=== PATIENT | male | born 1955 | race Caucasian/White ===

== ENCOUNTER → 2016-11-03 | Outpatient (CLI) | payer OTHER ==
--- NOTE | 2016-11-03 17:45 | XR ---
EXAMINATION TYPE: XR knee complete LT DATE OF EXAM: 11/03/2016 5:34 PM COMPARISON: 10/08/2014 HISTORY: Pain and contusion TECHNIQUE: 3 views FINDINGS: There is a moderate knee joint effusion. There is spurring of the patella. There is moderat e narrowing of the medial joint space. There is spurring of the femoral and tibial condyles. I see no fracture line. IMPRESSION: Moderate osteoarthritis. There is a large knee joint effusion that is new compared to old exam. No fracture seen.
== END | disposition home or self-care (01) ==
LOC: RADXRMAIN 17:15
PROVIDERS: ATTEND Emergency Medicine
DX: S80.02XA Contusion of left knee, initial encounter (principal); M17.12 Unilateral primary osteoarthritis, left knee

== ENCOUNTER 2021-04-22 08:21 | Day surgery (SDC) | payer MEDICARE, OTHER ==
[2021-04-17 11:42] VITALS: BMI 27.2
[~2021-04-22 08:21] MED LIST: LACTATED RINGERS 1,000 ML IV SCH
[2021-04-22 08:59] VITALS: RESP 16; TEMP 97
[2021-04-22] MEDS ORDERED: LIDOCAINE 1% (10MG/ML) FOR IV START INTRADERMA ONE (08:59)
[2021-04-22] MEDS ORDERED: PROPOFOL 10 MG/ML 20 ML VIAL IV ONE (09:35)
--- NOTE | 2021-04-22 09:45 | P.GSHP ---
History of Present Illness H&P Date: 04/22/21 CHIEF COMPLAINT: Colon screen HISTORY OF PRESENT ILLNESS: The patient is a 65-year-old male who presents for colon screen. Lower endoscopy was offered for further evaluation and management. PAST MEDICAL HISTORY: Please see list. PAST SURGICAL HISTORY: Please see list. MEDICATIONS: Please see list. ALLERGIES: Please see list. SOCIAL HISTORY: No illicit drug use FAMILY HISTORY: No reports of Crohn disease or ulcerative colitis. REVIEW OF ORGAN SYSTEMS: CONSTITUTIONAL: No reports of fevers or chills. PHYSICAL EXAM: VITAL SIGNS: Stable GENERAL: Well-developed pleasant in no acute distress. HEENT: No scleral icterus. Extraocular movements grossly intact. Moist buccal mucosa. NECK: Supple without lymphadenopathy. CHEST: Unlabored respirations. Equal bilateral excursions. CARDIOVASCULAR: Regular rate and rhythm. Distal 2+ pulses. ABDOMEN: Soft, nontender, nondistended. MUSCULOSKELETAL: No clubbing, cyanosis, or edema. ASSESSMENT: 1. Colon screen. PLAN: 1. Recommend proceeding with a lower endoscopy Past Medical History Past Medical History: Cancer, Osteoarthritis (OA), Seizure Disorder Additional Past Medical History / Comment(s): SKIN CANCER, last seizure > 10 yrs ago, hx colon polyp, blood in stool 3-4 weeks ago, History of Any Multi-Drug Resistant Organisms: None Reported Past Surgical History: Orthopedic Surgery, Tonsillectomy Additional Past Surgical History / Comment(s): left knee open surgery, LEFT KNEE-ARTHROSCOPIC, RIGHT SHOULDER fx- 2 pins, colonoscopy, Past Anesthesia/Blood Transfusion Reactions: No Reported Reaction Smoking Status: Former smoker - Past Family History Mother Family Medical History: Cancer Additional Family Medical History / Comment(s): PANCREAS Medications and Allergies Home Medications Medication Instructions Recorded Confirmed Type PHENobarbitaL [Luminal] 64.8 mg PO BID 03/02/16 04/22/21 History Phenytoin [Dilantin Chew] 50 mg PO QAM 03/02/16 04/22/21 History Magnesium 500 mg PO DAILY 04/17/21 04/22/21 History Multivitamins, Thera [Multivitamin 1 tab PO DAILY 04/17/21 04/22/21 History (formulary)] Phenytoin Sodium Extended 100 mg PO TID 04/17/21 04/22/21 History [Dilantin] Allergies Allergy/AdvReac Type Severity Reaction Status Date / Time No Known Allergies Allergy Verified 04/22/21 08:54 Surgical - Exam Vital Signs Temp Pulse Resp BP Pulse Ox 97.0 F L 74 16 156/76 96 04/22/21 08:58 04/22/21 08:58 04/22/21 08:58 04/22/21 08:58 04/22/21 08:58
--- NOTE | 2021-04-22 10:10 | P.PCN ---
Date of Procedure: 04/22/21 Description of Procedure: PREOPERATIVE DIAGNOSIS: Personal history of colon polyps Colonoscopy screening POSTOPERATIVE DIAGNOSIS: Personal history of colon polyps Tubular adenoma sigmoid colon Tubular adenoma ascending colon OPERATION: Colonoscopy to the ileocecal valve and appendiceal orifice, cecum Colonoscopy with cold forceps biopsy SURGEON: Barbara Parks MD. ANESTHESIA: MAC. INDICATIONS: The patient is an 65-year-old male who presents personal history of colon polyps. Last colonoscopy over 5 years. Benefits and risks were described and informed consent was obtained. DESCRIPTION OF PROCEDURE: The patient had undergone Sutab prep. The patient had been brought into the operating room and laid in the left lateral decubitus position. After adequate intravenous sedation, the rectum was examined with 2% lidocaine jelly. The prostate was unremarkable. No external hemorrhoids were encountered. The rectal tone was within normal limits. No lesions were palpated in the rectal vault. An Olympus colonoscope was advanced until the cecum, ileocecal valve and appendiceal orifice were clearly viewed. The prep was excellent. No sigmoid diverticulosis was encountered. Colonic polyps were found and removed. No evidence of focal colitis was found. Retroflexion of the scope demonstrated grade 1 internal hemorrhoids without active bleeding or inflammation. The colon was desufflated. The patient had tolerated the procedure well. Withdrawal time was over 6 minutes. FINDINGS: Aronchick preparation quality scale 1 (1-5) Internal hemorrhoids, grade 1 No external hemorrhoids No arteriovenous malformations. No sigmoid diverticulosis Removal of 2 polyps: - Cold forceps biopsy at 25 cm from the anal verge, 4 mm polyp, sigmoid colon - Cold forceps biopsy at proximal ascending colon, 4 mm polyp. No focal colitis. RECOMMENDATIONS: Repeat colonoscopy 3 year, 2023 for higher risk adenomatous polyps Plan - Discharge Summary New Discharge Prescriptions: Continue Phenytoin [Dilantin Chew] 50 mg PO QAM PHENobarbitaL [Luminal] 64.8 mg PO BID Phenytoin Sodium Extended [Dilantin] 100 mg PO TID Multivitamins, Thera [Multivitamin (formulary)] 1 tab PO DAILY Magnesium 500 mg PO DAILY Discharge Medication List PHENobarbitaL [Luminal] 64.8 mg PO BID 03/02/16 [History] Phenytoin [Dilantin Chew] 50 mg PO QAM 03/02/16 [History] Magnesium 500 mg PO DAILY 04/17/21 [History] Multivitamins, Thera [Multivitamin (formulary)] 1 tab PO DAILY 04/17/21 [History] Phenytoin Sodium Extended [Dilantin] 100 mg PO TID 04/17/21 [History] Follow up Appointment(s)/Referral(s): Barbara Parks MD [STAFF PHYSICIAN] - As Needed Patient Instructions/Handouts: Colorectal Polyps (DC) Activity/Diet/Wound Care/Special Instructions: Repeat colonoscopy 3 years2023 Discharge Disposition: HOME SELF-CARE
[2021-04-22 10:24] VITALS: BP 133/82; PULSE 64
== END 2021-04-22 10:46 | disposition home or self-care (01) ==
LOC: ORWHC2ENDO 08:21
PROVIDERS: ATTEND Surgery Plastic and Reconstructive Surgery
DX: Z12.11 Encounter for screening for malignant neoplasm of colon (principal); Z86.010 Personal history of colon polyps; D12.5 Benign neoplasm of sigmoid colon; D12.2 Benign neoplasm of ascending colon; M19.90 Unspecified osteoarthritis, unspecified site; G40.909 Epilepsy, unspecified, not intractable, without status epilepticus; Z87.891 Personal history of nicotine dependence; Z85.828 Personal history of other malignant neoplasm of skin; Z79.899 Other long term (current) drug therapy
CPT/HCPCS: 45380; 88305; J2704

== ENCOUNTER 2023-11-23 07:59 | Day surgery (SDC) | payer MEDICARE ==
[2023-11-21 11:26] VITALS: BMI 23.7
[~2023-11-23 07:59] MED LIST changes: -LACTATED RINGERS 1,000 ML IV SCH; +LIDOCAINE 1% (10MG/ML) FOR IV START INTRADERMA PRN; +ONDANSETRON 4 MG/2 ML VIAL IVP PRN
--- NOTE | 2023-11-23 08:01 | P.GSHP ---
History of Present Illness H&P Date: 11/23/23 CHIEF COMPLAINT: Colon screen HISTORY OF PRESENT ILLNESS: The patient is a 67-year-old male who presents for colon screen. Lower endoscopy was offered for further evaluation and management. PAST MEDICAL HISTORY: Please see list. PAST SURGICAL HISTORY: Please see list. MEDICATIONS: Please see list. ALLERGIES: Please see list. SOCIAL HISTORY: No illicit drug use FAMILY HISTORY: No reports of Crohn disease or ulcerative colitis. REVIEW OF ORGAN SYSTEMS: CONSTITUTIONAL: No reports of fevers or chills. PHYSICAL EXAM: VITAL SIGNS: Stable GENERAL: Well-developed pleasant in no acute distress. HEENT: No scleral icterus. Extraocular movements grossly intact. Moist buccal mucosa. NECK: Supple without lymphadenopathy. CHEST: Unlabored respirations. Equal bilateral excursions. CARDIOVASCULAR: Regular rate and rhythm. Distal 2+ pulses. ABDOMEN: Soft, nontender, nondistended. MUSCULOSKELETAL: No clubbing, cyanosis, or edema. ASSESSMENT: 1. Colon screen. PLAN: 1. Recommend proceeding with a lower endoscopy Past Medical History Past Medical History: Cancer, Osteoarthritis (OA), Seizure Disorder Additional Past Medical History / Comment(s): SKIN CANCER, last seizure > 10 yrs ago, hx colon polyp, blood in stool 3-4 weeks ago, History of Any Multi-Drug Resistant Organisms: None Reported Past Surgical History: Orthopedic Surgery, Tonsillectomy Additional Past Surgical History / Comment(s): left knee open surgery, LEFT KNEE-ARTHROSCOPIC, RIGHT SHOULDER fx- 2 pins, colonoscopy, Past Anesthesia/Blood Transfusion Reactions: No Reported Reaction Additional Past Anesthesia/Blood Transfusion Reaction / Comment(s): no blood transfusion Smoking Status: Former smoker - Past Family History Mother Family Medical History: Cancer Additional Family Medical History / Comment(s): PANCREAS Medications and Allergies Home Medications Medication Instructions Recorded Confirmed Type PHENobarbitaL [Luminal] 64.8 mg PO BID 03/02/16 11/21/23 History Phenytoin [Dilantin Chew] 50 mg PO QAM 03/02/16 11/21/23 History Magnesium 500 mg PO DAILY 04/17/21 11/21/23 History Multivitamins, Thera [Multivitamin 1 tab PO DAILY 04/17/21 11/21/23 History (formulary)] Phenytoin Sodium Extended 100 mg PO TID 04/17/21 11/21/23 History [Dilantin] Allergies Allergy/AdvReac Type Severity Reaction Status Date / Time No Known Allergies Allergy Verified 11/21/23 11:01
[2023-11-23] MEDS: LACTATED RINGERS 1,000 ML IV SCH (08:50)
[2023-11-23 09:17] VITALS: TEMP 96.6
[2023-11-23] MEDS ORDERED: PROPOFOL 10 MG/ML 20 ML VIAL IV ONE (09:29)
--- NOTE | 2023-11-23 10:02 | P.PCN ---
Date of Procedure: 11/23/23 Description of Procedure: PREOPERATIVE DIAGNOSIS: Personal history of colon polyps Colonoscopy screening. POSTOPERATIVE DIAGNOSIS: Colonoscopy screening. Diverticulosis, scattered. OPERATION: Colonoscopy to the cecum, ileocecal valve and appendiceal orifice. SURGEON: Barbara Parks MD. ANESTHESIA: MAC. INDICATIONS: The patient is a 67-year-old male who presents for colonoscopy screening. Benefits and risks were described and informed consent was obtained. DESCRIPTION OF PROCEDURE: The patient had undergone GoLytely prep. The patient had been brought into the operating room and laid in the left lateral decubitus position. After adequate intravenous sedation, the rectum was examined with 2% lidocaine jelly. Prostate unremarkable. No external hemorrhoids were encountered. The rectal tone was within normal limits. No lesions were palpated in the rectal vault. An Olympus colonoscope was advanced until the cecum, ileocecal valve and appendiceal orifice were clearly viewed. The prep was fair. Scattered diverticulosis was encountered. No colonic polyps were found. No evidence of focal colitis was found. Retroflexion of the scope demonstrated grade 1 internal hemorrhoids without active bleeding or inflammation. The colon was desufflated. The patient had tolerated the procedure well. Withdrawal time was over 6 minutes. FINDINGS: Aronchick preparation quality scale 2+ (1-5) Internal hemorrhoids, grade 1 No external prolapsed hemorrhoids. No arteriovenous malformations. No adenomatous polyps. No focal colitis. Scattered sigmoid diverticulosis RECOMMENDATIONS: Lower endoscopy 5 years, 2028 Plan - Discharge Summary Discharge Rx Participant: No New Discharge Prescriptions: Continue Phenytoin [Dilantin Chew] 50 mg PO QAM PHENobarbitaL [Luminal] 64.8 mg PO BID Phenytoin Sodium Extended [Dilantin] 100 mg PO TID Multivitamins, Thera [Multivitamin (formulary)] 1 tab PO DAILY Magnesium 500 mg PO DAILY Discharge Medication List PHENobarbitaL [Luminal] 64.8 mg PO BID 03/02/16 [History] Phenytoin [Dilantin Chew] 50 mg PO QAM 03/02/16 [History] Magnesium 500 mg PO DAILY 04/17/21 [History] Multivitamins, Thera [Multivitamin (formulary)] 1 tab PO DAILY 04/17/21 [Histor y] Phenytoin Sodium Extended [Dilantin] 100 mg PO TID 04/17/21 [History] Follow up Appointment(s)/Referral(s): Barbara Parks MD [STAFF PHYSICIAN] - As Needed Patient Instructions/Handouts: Diverticulosis Diet (GEN), Diverticulosis (DC) Activity/Diet/Wound Care/Special Instructions: Repeat colonoscopy 5 years, 2028 Discharge Disposition: HOME SELF-CARE
[2023-11-23 10:28] VITALS: BP 135/77; PULSE 62; RESP 16
== END 2023-11-23 10:28 | disposition home or self-care (01) ==
LOC: ORWHC2ENDO 07:59
PROVIDERS: ATTEND Surgery Plastic and Reconstructive Surgery
DX: Z12.11 Encounter for screening for malignant neoplasm of colon (principal); K57.30 Diverticulosis of large intestine without perforation or abscess without bleeding; K64.1 Second degree hemorrhoids; Z86.010 Personal history of colon polyps; G40.909 Epilepsy, unspecified, not intractable, without status epilepticus; Z85.828 Personal history of other malignant neoplasm of skin; Z87.891 Personal history of nicotine dependence; Z79.899 Other long term (current) drug therapy
CPT/HCPCS: G0105; J2704